=== PATIENT | female | born 1990 | race Two or more races ===

== ENCOUNTER 2016-09-23 20:07 | Inpatient (IN) | payer BC ==
[2016-09-24] MEDS ORDERED: Methylergonovine 0.2 MG/1 ML Amp IM PRN (01:58)
[2016-09-24] MEDS ORDERED: Carboprost Tromethamine 250 MCG/1 ML Amp IM PRN (01:58)
[2016-09-24] MEDS ORDERED: Water For Irrigation,Sterile 1,000 ML Container IRR PRN (01:58)
[2016-09-24] MEDS ORDERED: Sodium Chloride 0.9% 2.5 ML Syringe FLUSH PRN (01:58)
[2016-09-24] MEDS ORDERED: Lidocaine 1% 50 ML MDV INJECT PRN (01:58)
[2016-09-24] MEDS ORDERED: Misoprostol 200 MCG Tab PO PRN (01:58)
[2016-09-24] MEDS ORDERED: Nalbuphine 10 MG/1 ML Vial IVPUSH PRN (01:58)
[2016-09-24] MEDS ORDERED: Sodium Chloride 0.9% 10 ML Syringe FLUSH PRN (01:58)
[2016-09-24] MEDS ORDERED: Lactated Ringers 1,000 ML IV SCH (02:00)
[2016-09-24] MEDS ORDERED: Oxytocin/Lactated Ringers 30 UNIT/500 ML BAG IV SCH (02:00)
[2016-09-24] MEDS: Butorphanol 1 MG/ML SDV IVPUSH PRN ×2 (02:28→03:26)
[2016-09-24] MEDS ORDERED: fentaNYL 100 MCG/2 ML SDV ONE (03:56)
[2016-09-24] MEDS ORDERED: Ropivacaine 0.2% 2 MG/ML 20 ML SDV ONE (03:57)
--- NOTE | 2016-09-24 04:41 | PCM.PREANE ---
Preanesthetic Assessment - Anesthesia/Transfusion/Family Hx Anesthesia History: No Prior Anesthesia Family History of Anesthesia Reaction: No - Review of Systems General: No Symptoms Pulmonary: No Symptoms Cardiovascular: No Symptoms Gastrointestinal: No symptoms Neurological: No Symptoms (Denies any personal or family hx of bleeding or clotting problems) Other: Reports: None - Physical Assessment Height: 1.63 m Weight: 77.564 kg ASA Class: 2 Mental Status: Alert & Oriented x3 Airway Class: Mallampati = 2 Dentition: Reports: Normal Dentition - Lab Values: Laboratory Last Values WBC 15.17 K/uL (4.0-11.0) H 09/24/16 02:12 RBC 3.79 M/uL (4.30-5.90) L 09/24/16 02:12 Hgb 11.5 g/dL (12.0-16.0) L 09/24/16 02:12 Hct 34.6 % (36.0-46.0) L 09/24/16 02:12 MCV 91.3 fL (80.0-98.0) 09/24/16 02:12 MCH 30.3 pg (27.0-32.0) 09/24/16 02:12 MCHC 33.2 g/dL (31.0-37.0) 09/24/16 02:12 RDW Std Deviation 42.6 fl (28.0-62.0) 09/24/16 02:12 RDW Coeff of Merly 13 % (11.0-15.0) 09/24/16 02:12 Plt Count 213 K/uL (150-400) 09/24/16 02:12 MPV 7.80 fL (7.40-12.00) 09/24/16 02:12 Blood Type O NEGATIVE 09/24/16 02:12 Antibody Screen NEGATIVE 09/24/16 02:12 - Allergies Allergies/Adverse Reactions: Allergies Allergy/AdvReac Type Severity Reaction Status Date / Time seafoods Allergy Difficulty Uncoded 01/24/14 05:31 Breathing - Acknowledgements Anesthesia Type Planned: Epidural Pt an Appropriate Candidate for the Planned Anesthesia: Yes Alternatives and Risks of Anesthesia Discussed w Pt/Guardian: Yes Pt/Guardian Understands and Agrees with Anesthesia Plan: Yes PreAnesthesia Questionnaire - Past Health History Medical/Surgical History: Denies Medical/Surgical History - CURRENT (IN HOUSE) MEDS Current Meds: Current Medications Butorphanol Tartrate (Stadol) 1 mg IVPUSH ASDIRECTED PRN PRN Reason: Pain Last Admin: 09/24/16 03:26 Dose: 1 mg Carboprost Tromethamine (Hemabate Ds) 250 mcg IM ASDIRECTED PRN PRN Reason: Post Hemorrhage Lactated Ringer's (Ringers, Lactated) 1,000 mls @ 150 mls/hr IV ASDIRECTED RUTHANN Last Admin: 09/24/16 02:29 Dose: 150 mls/hr Lidocaine HCl (Xylocaine 1%) 50 ml INJECT .ONCE PRN PRN Reason: Laceration repair Methylergonovine Maleate (Methergine) 0.2 mg IM ASDIRECTED PRN PRN Reason: Post Hemorrhage Misoprostol (Cytotec) 200 mcg PO .ONCE PRN PRN Reason: Post Hemorrhage Nalbuphine HCl (Nubain) 10 mg IVPUSH ASDIRECTED PRN PRN Reason: Pain (severe 7-10) Stop: 09/26/16 01:59 Sodium Chloride (Saline Flush) 10 ml FLUSH ASDIRECTED PRN PRN Reason: Keep Vein Open Sodium Chloride (Saline Flush) 2.5 ml FLUSH ASDIRECTED PRN PRN Reason: Keep Vein Open Sterile Water (Sterile Water For Irrigation) 1,000 ml IRR ASDIRECTED PRN PRN Reason: delivery Discontinued Medications Fentanyl (Sublimaze) Confirm Administered Dose 100 mcg .ROUTE .STK-MED ONE Stop: 09/24/16 03:57 Oxytocin/Lactated Ringer's (Pitocin In Lr 30 Units/500 Ml) 30 unit in 500 mls @ 250 mls/hr IV TITRATE RUTHANN; 250 MUNITS/MIN PRN Reason: Protocol Stop: 09/24/16 03:59 Ropivacaine/Fentanyl/NS (Fentanyl 2 Mcg-Ropiv 0.2%-Ns) Confirm Administered Dose 100 mls @ as directed .ROUTE .STK-MED ONE Stop: 09/24/16 03:56 Ropivacaine (Naropin 0.2%) Confirm Administered Dose 20 ml .ROUTE .STK-MED ONE Stop: 09/24/16 03:58
[2016-09-24] MEDS ORDERED: Oxytocin/Lactated Ringers 30 UNIT/500 ML BAG ONE (06:20)
[2016-09-24] MEDS ORDERED: Witch Hazel Medicated Pads 40/Jar TOP PRN (07:25)
[2016-09-24] MEDS ORDERED: Docusate Sodium 100 MG Cap PO PRN (07:25)
[2016-09-24] MEDS ORDERED: Bisacodyl 10 MG Supp RECTAL PRN (07:25)
[2016-09-24] MEDS ORDERED: oxyCODONE 5 MG Tab PO PRN (07:25)
[2016-09-24] MEDS ORDERED: Lanolin 100% Cream 7 GM Tube TOP PRN (07:25)
[2016-09-24] MEDS ORDERED: Acetaminophen 500 MG Tab PO PRN (07:25)
[2016-09-24] MEDS ORDERED: Benzocaine/Menthol 20%-0.5% Spray 78 GM Cannister TOP PRN (07:25)
--- NOTE | 2016-09-24 08:26 | PCM48HPAN ---
Post Anesthesia Note - EVALUATION WITHIN 48HRS OF ANESTHETIC Vital Signs in Normal Range: Yes Patient Participated in Evaluation: Yes Respiratory Function Stable: Yes Airway Patent: Yes Cardiovascular Function Stable: Yes Hydration Status Stable: Yes Pain Control Satisfactory: Yes Nausea and Vomiting Control Satisfactory: Yes Mental Status Recovered: Yes - COMMENTS/OBSERVATIONS Free Text/Narrative:: Sitting up in bed nursing baby. States epidural worked well and no complaints at this time.
[2016-09-24] MEDS: Ibuprofen 800 MG Tab PO PRN (12:43)
--- NOTE | 2016-09-24 13:47 | OR ---
SURGEON: Margarita Goel DATE OF PROCEDURE: 09/24/2016 BRIEF PREOPERATIVE HISTORY: This is a 26-year-old G2, P1, who presented to Labor and Delivery with complaints of worsening uterine contractions. The patient was wale anywhere from 2 to 5 minutes and heart tracing was significant for category 1 status. On first exam, the patient was noted to be 2 cm dilated. On recheck, 2-1/2 hours later, the patient was noted to be 3 cm dilated, and was getting more uncomfortable. The patient was rechecked later and found to be 4 to 5 cm dilated. After the patient was admitted, given IV pain medicines, and then eventually did receive an epidural for analgesia for labor. The patient eventually progressed to complete status and underwent spontaneous rupture of membranes. Of note, if not stated, there was category 1 tracing at the time patient arrived in OB triage and throughout labor. Once reaching complete status, the patient started maternal expulsive efforts. PREOPERATIVE DIAGNOSIS: 1. Intrauterine at 40 weeks and 2 days. 2. Active labor. 3. GBS negative. POSTOPERATIVE DIAGNOSIS: 1. Intrauterine at 40 weeks and 2 days. 2. Active labor. 3. GBS negative. 4. Deliver status. 5. Small second-degree vaginal laceration. PROCEDURE PERFORMED.: 1. Spontaneous-assisted vaginal delivery. 2. Repair of second-degree laceration. ESTIMATED BLOOD LOSS: 150 mL. ANESTHESIA: Epidural. FINDINGS: A viable female infant in vertex presentation with score of 8 and 9 at 1 and 5 minutes respectively and weight of 3690 g. Normal intact placenta with a 3-vessel cord. Small second-degree perineal laceration. SPECIMEN REMOVED: Placenta. CONDITION: Postoperatively, the patient and tolerated the procedure well. COMPLICATIONS: None known. DESCRIPTION OF PROCEDURE: This female, under epidural anesthesia, delivered a viable female infant with score of 8 and 9 at 1 and 5 minutes respectively and weighed a 3690 g. Delivery was via spontaneous assisted vaginal delivery in vertex presentation. Upon delivery of vertex, neck was checked, there was no nuchal and with gentle downward traction, the anterior shoulder was spontaneously delivered followed by the body. The was bulb suctioned at delivery and placed on mom at request. Cord was doubly clamped and cut and cord blood was collected and sent for analysis. After delivery of , IV Pitocin was given in bolus fashion for active management of third stage of labor. With signs of placental separation, fundal massage was completed along with traction on the umbilical cord and a normal intact placenta with 3-vessel cord was delivered. After delivery of the and placenta, the vagina, perineum, and rectum were explored and the patient had a midline small second-degree perineal laceration that was repaired in the usual fashion with 3-0 Vicryl suture. After repair, the lower uterine segment of vagina was cleared of all clots and debris. The patient was cleansed, pads were changed, and the bed was returned to functioning status. The patient and tolerated the procedure well. Sponge, lap, needle, and instrument counts were correct. TIFFANY / DANA /[id number] MTDSandra
[2016-09-25] MEDS: Ibuprofen 800 MG Tab PO PRN (01:14)
--- NOTE | 2016-09-25 07:31 | PCM.PNPP ---
- General Info Date of Service: 09/25/16 Functional Status: Reports: pain controlled, tolerating diet, ambulating, urinating - Review of Systems General: Reports: No Symptoms HEENT: Reports: no symptoms Pulmonary: Reports: no symptoms Cardiovascular: Reports: No Symptoms Gastrointestinal: Reports: No symptoms Genitourinary: Reports: no symptoms Musculoskeletal: Reports: no symptoms Skin: Reports: no symptoms Neurological: Reports: No Symptoms Psychiatric: Reports: no symptoms - General Info Date of Service: 09/25/16 - Patient Data Vital Signs - most recent: Last Vital Signs Temp 36.6 C 09/25/16 02:00 Pulse 80 09/25/16 02:00 Resp 16 09/25/16 02:00 BP 102/55 L 09/25/16 02:00 Pulse Ox 98 09/25/16 02:00 Weight - most recent: 77.564 kg I&O - last 24 hours: Intake & Output 09/24/16 09/25/16 09/25/16 22:59 06:59 14:59 Intake Total 2 Balance 2 Lab Results - last 24 hrs: Laboratory Results - last 24 hr 09/24/16 09/25/16 Range/Units 07:45 04:21 Hgb 8.7 L (12.0-16.0) g/dL Hct 27.9 L (36.0-46.0) % Screen NEGATIVE RhIG Candidate? YES Rhogam Indicated YES, BABY RH POS H Med Orders - Current: Current Medications Acetaminophen (Tylenol Extra Strength) 500 mg PO Q4H PRN PRN Reason: Pain Benzocaine/Menthol (Dermoplast Pain Relief 20%-0.5% [place]) 78 gm TOP ASDIRECTED PRN PRN Reason: Perineal Comfort Measure Last Admin: 09/24/16 08:58 Dose: 1 canister Bisacodyl (Dulcolax) 10 mg RECTAL .ONCE PRN PRN Reason: Constipation Butorphanol Tartrate (Stadol) 1 mg IVPUSH ASDIRECTED PRN PRN Reason: Pain Last Admin: 09/24/16 03:26 Dose: 1 mg Carboprost Tromethamine (Hemabate Ds) 250 mcg IM ASDIRECTED PRN PRN Reason: Post Hemorrhage Docusate Sodium (Colace) 100 mg PO BID PRN PRN Reason: Constipation Last Admin: 09/24/16 09:01 Dose: 100 mg Emollient Ointment (Lansinoh Hpa) 0 gm TOP ASDIRECTED PRN PRN Reason: Sore Nipples Last Admin: 09/24/16 08:59 Dose: 1 applic Lactated Ringer's (Ringers, Lactated) 1,000 mls @ 150 mls/hr IV ASDIRECTED RUTHANN Last Admin: 09/24/16 02:29 Dose: 150 mls/hr Ibuprofen (Motrin) 800 mg PO Q6H PRN PRN Reason: Pain Last Admin: 09/25/16 01:14 Dose: 800 mg Lidocaine HCl (Xylocaine 1%) 50 ml INJECT .ONCE PRN PRN Reason: Laceration repair Methylergonovine Maleate (Methergine) 0.2 mg IM ASDIRECTED PRN PRN Reason: Post Hemorrhage Misoprostol (Cytotec) 200 mcg PO .ONCE PRN PRN Reason: Post Hemorrhage Nalbuphine HCl (Nubain) 10 mg IVPUSH ASDIRECTED PRN PRN Reason: Pain (severe 7-10) Stop: 09/26/16 01:59 Oxycodone HCl (Oxycodone) 5 mg PO Q2H PRN PRN Reason: Pain Sodium Chloride (Saline Flush) 10 ml FLUSH ASDIRECTED PRN PRN Reason: Keep Vein Open Sodium Chloride (Saline Flush) 2.5 ml FLUSH ASDIRECTED PRN PRN Reason: Keep Vein Open Sterile Water (Sterile Water For Irrigation) 1,000 ml IRR ASDIRECTED PRN PRN Reason: delivery Last Admin: 09/24/16 06:45 Dose: 1,000 ml Witch Charmaine (Tucks) 1 pad TOP ASDIRECTED PRN PRN Reason: comfort care Last Admin: 09/24/16 08:59 Dose: 1 pad Discontinued Medications Fentanyl (Sublimaze) Confirm Administered Dose 100 mcg .ROUTE .STK-MED ONE Stop: 09/24/16 03:57 Oxytocin/Lactated Ringer's (Pitocin In Lr 30 Units/500 Ml) 30 unit in 500 mls @ 250 mls/hr IV TITRATE RUTHANN; 250 MUNITS/MIN PRN Reason: Protocol Stop: 09/24/16 03:59 Last Admin: 09/24/16 06:40 Dose: 250 munits/min, 250 mls/hr Ropivacaine/Fentanyl/NS (Fentanyl 2 Mcg-Ropiv 0.2%-Ns) Confirm Administered Dose 100 mls @ as directed .ROUTE .STK-MED ONE Stop: 09/24/16 03:56 Oxytocin/Lactated Ringer's (Pitocin In Lr 30 Units/500 Ml) Confirm Administered Dose 30 unit in 500 mls @ as directed .ROUTE .STK-MED ONE Stop: 09/24/16 06:21 Ropivacaine (Naropin 0.2%) Confirm Administered Dose 20 ml .ROUTE .STK-MED ONE Stop: 09/24/16 03:58 - Interaction Disposition, : in Room with Family Interaction: Holding Infant Feeding: Breastfed Infant; Nursed Well Support Person: - Recovery Exam Fundal Tone: Firm Fundal Level: 1 Fingerbreadths Below Umbilicus Fundal Placement: Midline Lochia Amount: Scant Lochia Color: Rubra/Red Perineum Description: Intact, Minimal Bruising/Swelling Other Perinuem Description: second degree laceration repaired Episiotomy/Laceration: Approximated Bladder Status: Voiding Urinary Elimination: Voided Other Urinary Elimination, : pt voided w/o diff for 1st urine after villagomez removal - Exam General: alert, oriented Neck: supple Lungs: Clear to auscultation, Normal respiratory effort Cardiovascular: Regular Rate, Regular Rhythm Abdomen: bowel sounds present, no tenderness Extremities: no calf tenderness Skin: warm, dry, intact Neurological: no new focal deficit Psy/Mental Status: alert, normal affect, normal mood - Problem List & Annotations (1) Vaginal delivery SNOMED Code(s): 626122071 Code(s): O80 - ENCOUNTER FOR FULL-TERM UNCOMPLICATED DELIVERY Status: Acute Current Visit: Yes - Problem List Review Problem List Initiated/Reviewed/Updated: Yes - My Orders Last 24 Hours: My Active Orders 09/24/16 07:25 Acetaminophen [Tylenol Extra Strength] 500 mg PO Q4H PRN Benzocaine/Menthol [Dermoplast Pain Relief 20%-0.5% [place]] 78 gm TOP ASDIRECTED PRN Bisacodyl [Dulcolax] 10 mg RECTAL .ONCE PRN Docusate Sodium [Colace] 100 mg PO BID PRN Ibuprofen [Motrin] 800 mg PO Q6H PRN Lanolin [Lansinoh HPA] See Dose Instructions TOP ASDIRECTED PRN Witch Charmaine [Tucks] 1 pad TOP ASDIRECTED PRN oxyCODONE 5 mg PO Q2H PRN Breast Pump [WOMSER] Per Unit Routine 09/24/16 07:26 Patient Status [ADT] Routine May Shower [RC] ASDIRECTED Up ad Lisa [RC] ASDIRECTED Vital Signs [RC] PER UNIT ROUTINE Assess Lochia [WOMSER] Per Unit Routine Assess Uterine Involution [WOMSER] Per Unit Routine Ice Therapy [OM.PC] Per Unit Routine Perineal Care [OM.PC] Per Unit Routine Peripheral IV Discontinue [OM.PC] Routine Sitz Bath [OM.PC] Per Unit Routine 09/24/16 Breakfast Regular Diet [DIET] 09/25/16 07:28 Ready for Discharge [RC] PER UNIT ROUTINE - Assessment Assessment:: PPD#1 s/p SAVD Doing well Desires discharge home today - Plan Plan:: Discharge home today with f/u in 6wks Pelvic rest for 6wks Bleeding precautions given Infection precautions given Thrombotic precautions given blues/depression
[2016-09-25 10:03] VITALS: BP 99/58
== END 2016-09-25 11:20 | disposition home or self-care (01) | DRG 560 ==
LOC: MW.OBCHECK 20:07 → MW.OB 20:07 → MW.OBCHECK 09-24 01:59 → MW.OB 09-24 01:59 → OBSVTOIN 09-24 06:36 → MW.OB 09-24 11:06
PROVIDERS: ADMIT Obstetrics & Gynecology; ATTEND Obstetrics & Gynecology
PROC: 10E0XZZ Delivery of Products of Conception, External Approach (ICD-10-PCS; principal; 2016-09-24)
PROC: 0KQM0ZZ Repair Perineum Muscle, Open Approach (ICD-10-PCS; 2016-09-24)
DX: O70.1 Second degree perineal laceration during delivery (principal); Z3A.40 40 weeks gestation of pregnancy; Z37.0 Single live birth
CPT/HCPCS: 01967; 36415; 59025; 85014; 85018; 85027; 85460; 86850; 86900; 86901; A9270-GY; J0595; J2790; J2795; J3010; J7120